=== PATIENT | male | born 1960 | race Caucasian/White ===

== ENCOUNTER → 2017-09-14 | Outpatient (CLI) | payer BC ==
--- NOTE | ~2017-09-14 | 2DMMODE ---
[facility] [place] [address] 2 D/M-MODE ECHOCARDIOGRAM Name: LC HUITRON Room #: REG [facility]#: [id number] Admission: 09/14/17 Attend Phys: Alonzo Saldana MD Discharge: Date of : 64 Date of Service: 09/14/17 1548 Report #: [id number] THIS REPORT FOR: //name// APPROVED REPORT Study performed: 09/14/2017 15:05:55 EXAM: Comprehensive 2D, Doppler, and color-flow Echocardiogram Patient Location: Out-Patient Status: routine BSA: 2.15 HR: 51 bpm BP: 140/82 mmHg Rhythm: NSR Other Information Study Quality: Good Indications CAD 2D Dimensions RVDd: 38.85 mm LVEF(%): 67.74 (>50%) IVSd: 10.85 (7-11mm) LVOT Diam: 20.89 (18-24mm) LVDd: 58.11 mm PWd: 10.76 (7-11mm) Ascending Ao: 33.27 (22-36mm) LVDs: 35.87 (25-40mm) Aortic Root: 32.02 mm Hirsch's LVEF: 67.74 % Volumes Left Atrial Volume (Systole) Single Plane 4CH: 57.08 mL Single Plane 2CH: 66.24 mL LA ESV Index: 31.00 mL/m2 Aortic Valve AoV Peak Stefan.: 1.37 m/s AO Peak Gr.: 7.46 mmHg LVOT Max P.17 mmHg LVOT Max V: 1.24 m/s OSMANY Vmax: 3.11 cm2 Mitral Valve E/A Ratio: 1.3 MV Decel. Time: 312.06 ms [facility] [employer] [place] [address] 2 D/M-MODE ECHOCARDIOGRAM Name: LC HUITRON Room #: [facility]#: [id number] Admission: 09/14/17 Attend Phys: Alonzo Saldana MD Discharge: Date of : 64 Date of Service: 09/14/17 1548 Report #: [id number] MV E Max Stefan.: 0.89 m/s MV A Stefan.: 0.66 m/s MV PHT: 90.50 ms IVRT: 83.04 ms Pulmonary Valve PV Peak Stefan.: 1.25 m/s PV Peak Gr.: 6.25 mmHg Pulmonary Vein P Vein S: 0.59 m/s P Vein A: 0.28 m/s P Vein D: 0.52 m/s P Vein A Dur.: 143.0 msec P Vein S/D Ratio: 1.13 Tricuspid Valve TR Peak Stefan.: 2.78 m/s RAP Estimate: 5.00 mmHg TR Peak Gr.: 30.91 mmHg PA Pressure: 36.00 mmHg Left Ventricle The left ventricle is normal size. There is normal left ventricular wall thickness. Left ventricular systolic function is normal. LVEF is 55-60%. The left ventricular diastolic function is normal. Right Ventricle The right ventricle is normal size. The right ventricular systolic function is normal. Atria The left atrium size is normal. The right atrium size is normal. Aortic Valve The aortic valve is normal in structure. No aortic regurgitation is present. There is no aortic valvular stenosis. Mitral Valve The mitral valve is normal in structure. Mild mitral regurgitation. Tricuspid Valve The tricuspid valve is normal in structure. Trace tricuspid regurgitation. Estimated PAP is 36mmHg. Pulmonic Valve The pulmonary valve is normal in structure. Trace pulmonic regurgitation. [facility] [address] [place] [address] 2 D/M-MODE ECHOCARDIOGRAM Name: LC HUITRON Room #: REG [facility]#: [id number] Admission: 09/14/17 Attend Phys: Alonzo Saldana MD Discharge: Date of : 64 Date of Service: 09/14/17 1548 Report #: [id number] Great Vessels The aortic root is normal in size. The ascending aorta is normal in size. IVC is normal in size and collapses >50% with inspiration. Pericardium There is no pericardial effusion. <Conclusion> The left ventricle is normal size. Left ventricular systolic function is normal. The left ventricular diastolic function is normal. The right ventricle is normal size. The left atrium size is normal. The aortic valve is normal in structure. Mild mitral regurgitation. Trace tricuspid regurgitation. Estimated PAP is 36mmHg. <ELECTRONICALLY SIGNED> By: Alonzo Saldana MD 09/14/17 1548 1548 1548 Alonzo Saldana MD /INF
== END ==
LOC: CV 06-05 11:04
DX: I25.10 Atherosclerotic heart disease of native coronary artery without angina pectoris (principal); I34.0 Nonrheumatic mitral (valve) insufficiency

== ENCOUNTER → 2020-03-03 | Outpatient (CLI) | payer BC | LOC: SJCVCIMAG 08:46 | PROVIDERS: ATTEND Internal Medicine Cardiovascular Disease | DX: I11.9 Hypertensive heart disease without heart failure (principal); R00.1 Bradycardia, unspecified; I25.10 Atherosclerotic heart disease of native coronary artery without angina pectoris; E78.00 Pure hypercholesterolemia, unspecified; K21.9 Gastro-esophageal reflux disease without esophagitis; Z79.82 Long term (current) use of aspirin; Z79.899 Other long term (current) drug therapy ==

== ENCOUNTER → 2020-10-07 | Outpatient (CLI) | payer BC, OTHER | LOC: SJCVCIMAG 08:08 | PROVIDERS: ATTEND Internal Medicine Cardiovascular Disease | DX: I73.9 Peripheral vascular disease, unspecified (principal); M79.606 Pain in leg, unspecified; Z88.8 Allergy status to other drugs, medicaments and biological substances; Z90.49 Acquired absence of other specified parts of digestive tract ==

== ENCOUNTER → 2021-10-06 | Outpatient (CLI) | payer BC, OTHER | LOC: SJCVCIMAG 08:32 | PROVIDERS: ATTEND Internal Medicine Cardiovascular Disease | DX: I25.10 Atherosclerotic heart disease of native coronary artery without angina pectoris (principal); I10 Essential (primary) hypertension; R93.1 Abnormal findings on diagnostic imaging of heart and coronary circulation ==